=== PATIENT | male | born 1990 | race Caucasian/White ===

== ENCOUNTER 2021-06-06 14:13 | Inpatient (IN) | payer OTHER ==
[2021-06-06 15:18] LABS: Amphetamine Screen,Urine Not Detected (NotDetected); Barbiturate Screen,Urine Not Detected (NotDetected); Benzodiazepines Screen,Urine Not Detected (NotDetected); Cocaine Screen,Urine Not Detected (NotDetected); Methadone Screen, Urine Not Detected (NotDetected); Opiate Screen,Urine Not Detected (NotDetected); Oxycodone Screen, Urine Not Detected (NotDetected); Phencyclidine Screen,Urine Not Detected (NotDetected); Tricyclic Antidepressant,Urine Not Detected (NotDetected); Urn Cannabinoid Scrn Not Detected (NotDetected)
--- NOTE | 2021-06-06 15:21 | ED ---
Psych HPI - General Chief Complaint: Psychiatric Symptoms Stated Complaint: Physciatric Symptoms Time Seen by Provider: 06/06/21 14:25 Source: patient, family, RN notes reviewed Mode of arrival: ambulatory - History of Present Illness Initial Comments: 22-year-old male with a history of depression who comes in today presenting with complaints of feeling depressed and suicidal apparently 2 days ago he wanted to hang himself but was stopped by his sister. Patient does have a history of drinking up to 4 beers per day did state he drank last night no street drugs reported. No definitive triggers. Other complaints or modifying factors MD Complaint: suicidal ideation, feels depressed - Related Data Home Medications Medication Instructions Recorded Confirmed No Known Home Medications 06/06/21 06/06/21 Allergies Allergy/AdvReac Type Severity Reaction Status Date / Time ginseng Allergy Rash/Hives Verified 06/06/21 15:23 sulfamethoxazole Allergy Unknown Verified 06/06/21 15:23 [From Bactrim] Childhood trimethoprim [From Bactrim] Allergy Unknown Verified 06/06/21 15:23 Childhood Review of Systems ROS Statement: Those systems with pertinent positive or pertinent negative responses have been documented in the HPI. ROS Other: All systems not noted in ROS Statement are negative. Past Medical History Past Medical History: No Reported History History of Any Multi-Drug Resistant Organisms: None Reported Past Surgical History: No Surgical Hx Reported Past Psychological History: No Psychological Hx Reported Smoking Status: Current every day smoker Past Alcohol Use History: Abuse, Daily, Heavy Past Drug Use History: None Reported General Exam - General Exam Comments Initial Comments: This is a well-developed well-nourished awake alert oriented 3 male Limitations: no limitations General appearance: alert, in no apparent distress Head exam: Present: atraumatic, normocephalic, normal inspection Eye exam: Present: normal appearance, PERRL, EOMI. Absent: scleral icterus, conjunctival injection, periorbital swelling ENT exam: Present: normal exam, mucous membranes moist Neck exam: Present: normal inspection. Absent: tenderness, meningismus, lymphadenopathy Respiratory exam: Present: normal lung sounds bilaterally. Absent: respiratory distress, wheezes, rales, rhonchi, stridor Cardiovascular Exam: Present: regular rate, normal rhythm, normal heart sounds. Absent: systolic murmur, diastolic murmur, rubs, gallop, clicks GI/Abdominal exam: Present: soft, normal bowel sounds. Absent: distended, tenderness, guarding, rebound, rigid Extremities exam: Present: normal inspection, full ROM, normal capillary refill. Absent: tenderness, pedal edema, joint swelling, calf tenderness Back exam: Present: normal inspection Neurological exam: Present: alert, oriented X3, CN II-XII intact Psychiatric exam: Present: depressed, flat affect, suicidal ideation Skin exam: Present: warm, dry, intact, normal color. Absent: rash Course Vital Signs 06/06/21 14:27 Temperature 98 F Pulse Rate 94 Respiratory 16 Rate Blood Pressure 170/114 O2 Sat by Pulse 99 Oximetry Medical Decision Making - Medical Decision Making Patient was evaluated by psychiatric service and will be admitted for inpatient evaluation and treatment. Patient is a voluntary admission - Lab Data Lab Results 06/06/21 Range/Units 14:47 Urine Opiates Screen Not Detected (NotDetected) Ur Oxycodone Screen Not Detected (NotDetected) Urine Methadone Screen Not Detected (NotDetected) Ur Propoxyphene Screen Not Detected (NotDetected) Ur Barbiturates Screen Not Detected (NotDetected) U Tricyclic Antidepress Not Detected (NotDetected) Ur Phencyclidine Scrn Not Detected (NotDetected) Ur Amphetamines Screen Not Detected (NotDetected) U Methamphetamines Scrn Not Detected (NotDetected) U Benzodiazepines Scrn Not Detected (NotDetected) Urine Cocaine Screen Not Detected (NotDetected) U Marijuana (THC) Screen Not Detected (NotDetected) Disposition Clinical Impression: Depression, Suicidal ideation Disposition: TRANSFER TO PSYCH HOSP/UNIT Condition: Fair Referrals: None,Stated [Primary Care Provider] - 1-2 days
[2021-06-06] MEDS ORDERED: MAGNESIUM HYDROXIDE 2,400 MG/10 ML CUP PO PRN (20:15)
[2021-06-06] MEDS ORDERED: MAG HYDROX/AL HYDROX/SIMETH 30 ML CUP PO PRN (20:15)
[2021-06-06] MEDS ORDERED: ACETAMINOPHEN TAB 325 MG TAB PO PRN (20:15)
[2021-06-06] MEDS ORDERED: LORazepam 1 MG TAB PO PRN (20:15)
[2021-06-06] MEDS ORDERED: LORazepam 2 MG/ML INJ IM PRN (20:19)
[2021-06-06] MEDS ORDERED: haloperidoL 5 MG TAB PO PRN (20:20)
[2021-06-06] MEDS ORDERED: HALOPERIDOL LACTATE 5 MG/ML 1 ML VIAL IM PRN (20:20)
[2021-06-06 22:09] VITALS: RESP 16
[2021-06-06] MEDS: NICOTINE 21MG/24HR PATCH TRANSDERM SCH (22:09)
[2021-06-07] MEDS ORDERED: cloNIDine HCL 0.2 MG TAB PO PRN (01:39)
--- NOTE | 2021-06-07 01:49 | P.MDCNMH ---
History of Present Illness H&P Date: 06/07/21 Chief Complaint: medical eval 30-year-old male with history of hypertension untreated Patient comes in for evaluation due to emotional stress with depression and having suicidal ideation Patient claims that he was told that he has high blood pressure since he was 20 years old but never got treated patient is not aware of any testing for secondary causes of high blood pressure he denies any chest pain trouble breathing headache nausea vomiting or any focal neuro deficits he denies any abdominal pain changes in bowel or urinary habits He denies any episodes of sweating or flushing of his skin, but he does gets episodes of anxiety Review of Systems Pertinent positives as noted in HPI. All other systems were reviewed and are negative Past Medical History Past Medical History: No Reported History History of Any Multi-Drug Resistant Organisms: None Reported Past Surgical History: No Surgical Hx Reported Past Anesthesia/Blood Transfusion Reactions: No Reported Reaction Past Psychological History: No Psychological Hx Reported Smoking Status: Vaper Past Alcohol Use History: Abuse, Daily Past Drug Use History: None Reported - Past Family History Family Family Medical History: No Reported History Medications and Allergies Home Medications Medication Instructions Recorded Confirmed Type No Known Home Medications 06/06/21 06/06/21 History Allergies Allergy/AdvReac Type Severity Reaction Status Date / Time ginseng Allergy Rash/Hives Verified 06/06/21 15:23 sulfamethoxazole Allergy Unknown Verified 06/06/21 15:23 [From Bactrim] Childhood trimethoprim [From Bactrim] Allergy Unknown Verified 06/06/21 15:23 Childhood Physical Exam Vitals: Vital Signs Temp Pulse Pulse Resp BP BP Pulse Ox 06/06/21 21:49 98.7 F 86 16 144/111 06/06/21 20:00 78 18 159/94 100 06/06/21 14:27 98 F 94 16 170/114 99 Intake and Output 06/06/21 06/06/21 06/07/21 14:59 22:59 06:59 Other: Weight 65.771 kg 65 kg Constitutional: No acute distress, conversant, pleasant Eyes: Anicteric sclerae, moist conjunctiva, Pupils equal round reactive to light ENMT: NC/AT Oropharynx clear, no erythema, or exudates Neck: Supple, FROM, no masses, or JVD No carotid bruits No thyromegaly Lungs: Clear to auscultation Clear to percussion Normal respiratory effort, no accessory muscle use Cardiovascular: Heart regular in rate and rhythm, No murmurs, gallops, or rubs No peripheral edema Abdominal: Soft Nontender, no guarding, rebound or rigidity Abdomen moving with respiration Normoactive bowel sounds No hepatomegaly, No splenomegaly No palpable mass No abdominal wall hernia noted Skin: Normal temperature, tone, texture, turgor No induration No subcutaneous nodules No rash, lesions No ulcers Extremities: No digital cyanosis No clubbing Pedal pulses intact and symmetrical Radial pulses intact and symmetrical No calf tenderness Psychiatric: Alert and oriented to person, place and time Neuro Muscles Strength 5/5 in all 4 extremities Sensation to light touch grossly present throughout Cranial nerves II-XII grossly intact No focal sensory deficits Lymphatics: no palpable cervical or supraclavicular , or inguinal lymph nodes Cranial Nerve Examination - Cranial Nerves Cranial Nerve II- Optic: Intact Cranial Nerve III- Oculomotor: Intact Cranial Nerve IV- Trochlear: Intact Cranial Nerve V- Trigeminal: Intact Cranial Nerve - Abducens: Intact Cranial Nerve VII- Facial: Intact Cranial Nerve VIII- Auditory: Intact Cranial Nerve IX- Glossopharyngeal: Intact Cranial Nerve X- Vagus: Intact Cranial Nerve XI- Accessory: Intact Cranial Nerve XII- Hypoglossal: Intact Assessment and Plan Assessment: Depression suicidal ideation management per psych Hypertension suspect secondary causes of hypertension I do recommend the patient considers outpatient workup for secondary causes of hypertension with metabolic profile, ruling out adrenal disease, renal artery stenosis, check an echocardiogram, check thyroid function Patient will need referral to PCP start the patient on amlodipine 5 mg daily, add clonidine when necessary for systolic pressure more than 180 Follow-up labs Thank you for allowing us to participate in the care of this patient. We will follow peripherally. Do not hesitate to contact us with questions. Someone can be reached from the [facility] hospitalist group at all hours of the day at [phone].
[2021-06-07 07:27] VITALS: TEMP 97.6
[2021-06-07] MEDS: NICOTINE 21MG/24HR PATCH TRANSDERM SCH (08:55)
[2021-06-07] MEDS: amLODIPine 5 MG TAB PO SCH (08:55)
[2021-06-07 09:32] LABS: Basophils # (A) 0.1 k/uL (0-0.2); Basophils % (A) 1 %; Eosinophils # (A) 0.4 k/uL (0-0.7); Eosinophils % (A) 4 %; HCT 44.6 % (39.0-53.0); HGB 14.9 gm/dL (13.0-17.5); Lymphocytes # (A) 2.2 k/uL (1.0-4.8); Lymphocytes % (A) 22 %; MCH 31.5 pg (25.0-35.0); MCHC 33.5 g/dL (31.0-37.0); MCV 94.3 fL (80.0-100.0); Mean Platelet Volume 7.8; Monocytes # (A) 0.8 k/uL (0-1.0); Monocytes % (A) 8 %; Neutrophils # (A) 6.4 k/uL (1.3-7.7); Neutrophils % (A) 63 %; Platelet Count 265 k/uL (150-450); RBC 4.73 m/uL (4.30-5.90); RDW 11.9 % (11.5-15.5); WBC 10.2 k/uL (3.8-10.6)
[2021-06-07 09:39] LABS: ALT 17 U/L (4-49); AST 33 U/L (17-59); African American GFR (CKD) >90 (>60 ml/min/1.73 sqM); Albumin 4.7 g/dL (3.5-5.0); Alkaline Phosphatase 69 U/L (38-126); Anion Gap 9 mmol/L; Blood Urea Nitrogen 9 mg/dL (9-20); Calcium 10.3 mg/dL (8.4-10.2); Carbon Dioxide 30 mmol/L (22-30); Chloride 100 mmol/L (98-107); Glucose 101 mg/dL (74-99); Non-African American GFR(CKD) >90 (>60 ml/min/1.73 sqM); Potassium 4.4 mmol/L (3.5-5.1); Sodium 139 mmol/L (137-145); Total Bilirubin 0.8 mg/dL (0.2-1.3); Total Protein 7.5 g/dL (6.3-8.2)
[2021-06-07] MEDS ORDERED: FLUoxetine HCL 20 MG CAP PO STA (10:24)
[2021-06-07] MEDS: NICOTINE GUM (POLACRILEX) 2 MG GUM BUCCAL PRN ×3 (12:08→21:58)
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
[2021-06-07 13:41] VITALS: BMI 20.2
[2021-06-08] MEDS: NICOTINE 21MG/24HR PATCH TRANSDERM SCH (08:28)
[2021-06-08] MEDS: amLODIPine 5 MG TAB PO SCH (08:29)
[2021-06-08 08:32] VITALS: BP 136/87; PULSE 73
[2021-06-08] MEDS ORDERED: FLUoxetine HCL 10 MG CAP PO SCH (09:00)
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
== END 2021-06-08 10:30 | disposition home or self-care (01) | DRG 885 ==
LOC: EC 14:13 → 3MHU 20:10
PROVIDERS: ADMIT Psychiatry & Neurology Psychiatry; ATTEND Psychiatry & Neurology Psychiatry
DX: F33.9 Major depressive disorder, recurrent, unspecified (principal); R45.851 Suicidal ideations; F10.10 Alcohol abuse, uncomplicated; F17.200 Nicotine dependence, unspecified, uncomplicated; F41.9 Anxiety disorder, unspecified; Z79.899 Other long term (current) drug therapy; Z81.1 Family history of alcohol abuse and dependence; Z20.822 Contact with and (suspected) exposure to COVID-19
CPT/HCPCS: 80053; 80306; 82075; 84443; 85025; 87635; 99285

== ENCOUNTER 2023-05-30 12:15 | Emergency (ER) | payer OTHER ==
[2023-05-30] MEDS ORDERED: diphenhydrAMINE 50 MG/ML 1 ML VIAL IVP STA (13:53)
[2023-05-30] MEDS ORDERED: PROCHLORPERAZINE INJ 10 MG/2 ML VIAL IVP STA (13:54)
--- NOTE | 2023-05-30 13:57 | ED ---
General Adult HPI - General Chief complaint: Headache Stated complaint: headache Time Seen by Provider: 05/30/23 13:35 Source: patient, RN notes reviewed, old records reviewed Mode of arrival: ambulatory Limitations: no limitations - History of Present Illness Initial comments: This is a 32-year-old male who presents emergency Department complaining of a headache. Patient states it started 3 days ago. Patient states he's had headaches similar but never lasting 3 days. Patient states she's very concerned about this because normally Motrin and Tylenol taken away but it did not today or yesterday. Patient denies any nausea vomiting. Patient states he is sensitive to light. Patient denies any recent fever chills or cough per patient denies any numbness or weakness. Patient denies any chest pain difficulty breathing patient is any abdominal pain. - Related Data Previous Rx's Medication Instructions Recorded FLUoxetine HCL [PROzac] 30 mg PO DAILY 30 Days cap 06/08/21 Nicotine Gum (Polacrilex) 2 mg BUCCAL Q4HR PRN 14 Days 06/08/21 [Nicorette] amLODIPine [Norvasc] 5 mg PO DAILY 30 Days tab 06/08/21 Allergies Allergy/AdvReac Type Severity Reaction Status Date / Time ginseng Allergy Rash/Hives Verified 05/30/23 12:23 sulfamethoxazole Allergy Unknown Verified 05/30/23 12:23 [From Bactrim] Childhood trimethoprim [From Bactrim] Allergy Unknown Verified 05/30/23 12:23 Childhood Review of Systems ROS Statement: Those systems with pertinent positive or pertinent negative responses have been documented in the HPI. ROS Other: All systems not noted in ROS Statement are negative. Past Medical History Past Medical History: No Reported History History of Any Multi-Drug Resistant Organisms: None Reported Past Surgical History: No Surgical Hx Reported Past Anesthesia/Blood Transfusion Reactions: No Reported Reaction Past Psychological History: No Psychological Hx Reported Smoking Status: Vaper Past Alcohol Use History: Abuse, Daily Past Drug Use History: None Reported - Past Family History Family Family Medical History: No Reported History General Exam - General Exam Comments Initial Comments: GENERAL: Patient is well-developed and well-nourished. Patient is nontoxic and well- hydrated and is in mild distress. ENT: Neck is soft and supple. No significant lymphadenopathy is noted. Oropharynx is clear. Moist mucous membranes. Neck has full range of motion without eliciting any pain. There is no thyroid enlargement and no masses were felt. EYES: The sclera were anicteric and conjunctiva were pink and moist. Extraocular movements were intact and pupils were equal round and reactive to light. Eyelids were unremarkable. PULMONARY: Unlabored respirations. Good breath sounds bilaterally. No audible rales rhonchi or wheezing was noted. CARDIOVASCULAR: There is a regular rate and rhythm without any murmurs gallops or rubs. Femoral pulses are equal bilaterally ABDOMEN: Soft and nontender with normal bowel sounds. No palpable organomegaly was noted. There is no palpable pulsatile mass. SKIN: Skin is clear with no lesions or rashes and otherwise unremarkable. NEUROLOGIC: Patient is alert and oriented x3. Cranial nerves II through XII are grossly intact. Motor and sensory are also intact. Normal speech, volume and content. Symmetrical smile. MUSCULOSKELETAL: Normal extremities with adequate strength and full range of motion. No lower extremity swelling or edema. No calf tenderness. LYMPHATICS: No significant lymphadenopathy is noted PSYCHIATRIC: Normal psychiatric evaluation. Normal interpersonal interactions appears functionally intact in deals appropriately with others. No signs of depression. No signs of anxiety. No delusions. No hallucinations. Limitations: no limitations Course Vital Signs 05/30/23 12:21 Temperature 98.7 F Pulse Rate 107 H Respiratory 20 Rate Blood Pressure 134/98 O2 Sat by Pulse 97 Oximetry Medical Decision Making - Medical Decision Making Was pt. sent in by a medical professional or institution ([facility], [employer], urgent care, hospital, or care home...) When possible be specific @ -No Did you speak to anyone other than the patient for history (EMS, parent, family, police, friend...)? What history was obtained from this source @ -No Did you review nursing and triage notes (agree or disagree)? Why? @ -I reviewed and agree with nursing and triage notes Were old charts reviewed (outside hosp., previous admission, EMS record, old EKG, old radiological studies, urgent care reports/EKG's, care home records)? Report findings @ -No old charts were reviewed Differential Diagnosis (chest pain, altered mental status, abdominal pain women, abdominal pain men, vaginal bleeding, weakness, fever, dyspnea, syncope, head ache, dizziness, GI bleed, back pain, seizure, CVA, palpatations, mental health, musculoskeletal)? @ -Differential Headache: Migraine, tension, cluster, carbon monoxide, central venous thrombosis, pension karma temporal arteritis, acute closure glaucoma, intercranial hemorrhage, mastoiditis, sinusitis, head injury, this is not meant to be an all-inclusive list. EKG interpreted by me (3pts min.). @ -As above X-rays interpreted by me (1pt min.). @ -None done CT interpreted by me (1pt min.). @ -CT of the brain shows no acute abnormality U/S interpreted by me (1pt. min.). @ -None done What testing was considered but not performed or refused? (CT, X-rays, U/S, labs)? Why? @ -None What meds were considered but not given or refused? Why? @ -None Did you discuss the management of the patient with other professionals (professionals i.e. , PA, [employer], lab, RT, psych nurse, social media job titles, test tech, teacher, air defence officer, case managers)? Give summary @ -No Was smoking cessation discussed for >3mins.? @ -No Was critical care preformed (if so, how long)? @ -No Were there social determinants of health that impacted care today? How? (Homelessness, low income, unemployed, alcoholism, drug addiction, transportation, low edu. Level, literacy, decrease access to med. care, [facility], rehab)? @ -No Was there de-escalation of care discussed even if they declined (Discuss DNR or withdrawal of care, Hospice)? DNR status @ -No What co-morbidities impacted this encounter? (DM, HTN, Smoking, COPD, CAD, Cancer, CVA, ARF, Chemo, Hep., AIDS, mental health diagnosis, sleep apnea, morbid obesity)? @ -None Was patient admitted / discharged? Hospital course, mention meds given and route, prescriptions, significant lab abnormalities, going to OR and other pertinent info. @ -Patient received Compazine Benadryl and Toradol and I went back and reevaluated him patient states he felt considerably better. Undiagnosed new problem with uncertain prognosis? @ -No Drug Therapy requiring intensive monitoring for toxicity (Heparin, Nitro, Insulin, Cardizem)? @ -No Were any procedures done? @ -No Diagnosis/symptom? @ -Migraine headache Acute, or Chronic, or Acute on Chronic? @ -Acute Uncomplicated (without systemic symptoms) or Complicated (systemic symptoms)? @ -Complicated Side effects of treatment? @ -No Exacerbation, Progression, or Severe Exacerbation? @ -No Poses a threat to life or bodily function? How? (Chest pain, [place], [place], pneumonia, PE, COPD, DKA, ARF, appy, cholecystitis, CVA, Diverticulitis, Homicidal, Suicidal, threat to staff... and all critical care pts) @ -No Disposition Clinical Impression: Migraine headache Disposition: HOME SELF-CARE Instructions (If sedation given, give patient instructions): Acute Headache (ED) Is patient prescribed a controlled substance at d/c from ED?: No Referrals: None,Stated [Primary Care Provider] - 1-2 days Time of Disposition: 14:57
[2023-05-30] MEDS ORDERED: SODIUM CHLORIDE 0.9% 1,000 ML IV ONE (13:58)
[2023-05-30] MEDS ORDERED: KETOROLAC 15 MG/ML 1 ML VIAL IVP STA (13:58)
--- NOTE | 2023-05-30 14:30 | CT ---
EXAMINATION TYPE: CT brain wo con DATE OF EXAM: 05/30/2023 COMPARISON: None HISTORY: headache CT DLP: 1130.[address] of the brain was performed. The ventricles, basal cisterns and sulci overlying the cerebral convexities demonstrate a normal appe arance. There is no evidence for intracranial hemorrhage or sulcal effacement. No mass effects are seen. Osseous calvarium is intact. If symptoms persist consider MRI as clinically warranted. IMPRESSION: 1. No acute intracranial process is seen at this time.
[2023-05-30 15:30] VITALS: TEMP 98.7
[2023-05-30 15:36] VITALS: BP 124/86; PULSE 83; RESP 16
== END 2023-05-30 15:36 | disposition home or self-care (01) ==
LOC: EC 12:15
DX: G43.909 Migraine, unspecified, not intractable, without status migrainosus (principal); F17.290 Nicotine dependence, other tobacco product, uncomplicated; Z88.2 Allergy status to sulfonamides; Z88.1 Allergy status to other antibiotic agents
CPT/HCPCS: 70450; 99284; 96374; 96375 ×2; 96361; J1200; J0780; J1885

== ENCOUNTER 2024-10-07 07:55 | Emergency (ER) | payer OTHER ==
[2024-10-07 08:28] VITALS: RESP 20
--- NOTE | 2024-10-07 08:38 | XR ---
EXAMINATION TYPE: XR chest 2V DATE OF EXAM: 10/07/2024 8:30 AM COMPARISON: Chest radiographs from 08/26/2014 CLINICAL INDICATION: Male, 34 years old with history of cough; [facility] TECHNIQUE: XR chest 2V Frontal and lateral views of the chest. FINDINGS: Lungs/Pleura: Right middle lobe faint opacities There is no evidence of pleural effusion, focal conso lidation, or pneumothorax. Pulmonary vascularity: Unremarkable. Heart/mediastinum: Cardiomediastinal silhouette is unremarkable. Musculoskeletal: No acute osseous pathology. IMPRESSION: There may be some right middle lobe airspace opacities correlate for pneumonia [facility], , 10/07/2024 8:35 AM
[2024-10-07 09:03] LABS: Influenza A Detected (Not Detectd); Influenza B Not Detected (Not Detectd); RSV Not Detected (Not Detectd)
--- NOTE | 2024-10-07 09:06 | ED ---
URI HPI - General Chief Complaint: Upper Respiratory Infection Stated Complaint: coughing Time Seen by Provider: 10/07/24 07:58 Source: patient, RN notes reviewed Mode of arrival: ambulatory Limitations: no limitations - History of Present Illness Initial Comments: 34-year-old male presents emergency department chief complaint of cough and congestion. Patient states been sick for several weeks. Has had increasing congestion and cough he states he not recorded a fever he states that decreased appetite and nausea. Patient denies any abdominal pain no current headache no dizziness. - Related Data Previous Rx's Medication Instructions Recorded FLUoxetine HCL [PROzac] 30 mg PO DAILY 30 Days cap 06/08/21 Nicotine Gum (Polacrilex) 2 mg BUCCAL Q4HR PRN 14 Days 06/08/21 [Nicorette] amLODIPine [Norvasc] 5 mg PO DAILY 30 Days tab 06/08/21 Azithromycin [Zithromax Z Pack] 0 tab PO DIRECTED #6 tab 10/07/24 Allergies Allergy/AdvReac Type Severity Reaction Status Date / Time ginseng Allergy Rash/Hives Verified 10/07/24 07:57 sulfamethoxazole Allergy Unknown Verified 10/07/24 07:57 [From Bactrim] Childhood trimethoprim [From Bactrim] Allergy Unknown Verified 10/07/24 07:57 Childhood Review of Systems ROS Statement: Those systems with pertinent positive or pertinent negative responses have been documented in the HPI. ROS Other: All systems not noted in ROS Statement are negative. Past Medical History Past Medical History: No Reported History History of Any Multi-Drug Resistant Organisms: None Reported Past Surgical History: No Surgical Hx Reported Past Anesthesia/Blood Transfusion Reactions: No Reported Reaction Past Psychological History: No Psychological Hx Reported Smoking Status: Vaper Past Alcohol Use History: Abuse, Daily Past Drug Use History: None Reported - Past Family History Family Family Medical History: No Reported History General Exam Limitations: no limitations General appearance: alert, in no apparent distress Head exam: Present: atraumatic, normocephalic, normal inspection Eye exam: Present: normal appearance, PERRL, EOMI. Absent: scleral icterus, conjunctival injection, periorbital swelling ENT exam: Present: normal exam, normal oropharynx, mucous membranes moist Neck exam: Present: normal inspection, full ROM. Absent: tenderness, meningismus, lymphadenopathy Respiratory exam: Present: rhonchi. Absent: normal lung sounds bilaterally, respiratory distress, wheezes, rales, stridor Cardiovascular Exam: Present: regular rate, normal rhythm, tachycardia, normal heart sounds. Absent: systolic murmur, diastolic murmur, rubs, gallop, clicks Course Vital Signs 10/07/24 10/07/24 10/07/24 07:57 08:22 08:55 Temperature 97.7 F 98.4 F Pulse Rate 105 H 106 H Respiratory 19 20 20 Rate Blood Pressure 155/104 149/106 O2 Sat by Pulse 99 97 Oximetry Medical Decision Making - Medical Decision Making Was pt. sent in by a medical professional or institution ([facility] Calix, [employer], urgent care, hospital, or fpc...) When possible be specific @ -No Did you speak to anyone other than the patient for history (EMS, parent, family, police, friend...)? What history was obtained from this source @ -No Did you review nursing and triage notes (agree or disagree)? Why? @ -I reviewed and agree with nursing and triage notes Were old charts reviewed (outside hosp., previous admission, EMS record, old EKG, old radiological studies, urgent care reports/EKG's, fpc records)? Report findings @ -No old charts were reviewed Differential Diagnosis (chest pain, altered mental status, abdominal pain women, abdominal pain men, vaginal bleeding, weakness, fever, dyspnea, syncope, headache, dizziness, GI bleed, back pain, seizure, CVA, palpatations, mental health, musculoskeletal)? @ -COVID 19, RSV, influenza, pneumonia, acute bronchitis, URI, this list is not all inclusive EKG interpreted by me (3pts min.). @ -None X-rays interpreted by me (1pt min.). @Chest x-ray shows questionable pneumonia CT interpreted by me (1pt min.). @ -None done U/S interpreted by me (1pt. min.). @ -None done What testing was considered but not performed or refused? (CT, X-rays, U/S, labs)? Why? @ -None What meds were considered but not given or refused? Why? @ -None Did you discuss the management of the patient with other professionals (professionals i.e. SHARA Calix, [employer], lab, RT, psych nurse, high school social studies teacher, spray gun striper, teacher, traffic maintenance officer, keycase assembler)? Give summary @ -No Was smoking cessation discussed for >3mins.? @ -No Was critical care preformed (if so, how long)? @ -No Were there social determinants of health that impacted care today? How? (Homelessness, low income, unemployed, alcoholism, drug addiction, transportation, low edu. Level, literacy, decrease access to med. care, care home, rehab)? @ -No Was there de-escalation of care discussed even if they declined (Discuss DNR or withdrawal of care, Hospice)? DNR status @ -No What co-morbidities impacted this encounter? (DM, HTN, Smoking, COPD, CAD, Cancer, CVA, ARF, Chemo, Hep., AIDS, mental health diagnosis, sleep apnea, morbid obesity)? @ -None Was patient admitted / discharged? Hospital course, mention meds given and route, prescriptions, significant lab abnormalities, going to OR and other pertinent info. @ -[Charge patient is influenza A positive, chest x-ray shows evidence of pneumonia. Patient was treated with azithromycin return parameters esme. Undiagnosed new problem with uncertain prognosis? @ -No Drug Therapy requiring intensive monitoring for toxicity (Heparin, Nitro, Insulin, Cardizem)? @ -No Were any procedures done? @ -No Diagnosis/symptom? @ -Pneumonia, influenza A Acute, or Chronic, or Acute on Chronic? @ -Acute Uncomplicated (without systemic symptoms) or Complicated (systemic symptoms)? @ -Uncomplicated Side effects of treatment? @ -No Exacerbation, Progression, or Severe Exacerbation? @ -No Poses a threat to life or bodily function? How? (Chest pain, [place], [place], pneumonia, PE, COPD, DKA, ARF, appy, cholecystitis, CVA, Diverticulitis, Homicidal, Suicidal, threat to staff... and all critical care pts) @ -No - Lab Data Lab Results 10/07/24 Range/Units 08:20 Influenza Type A (PCR) Detected A (Not Detectd) Influenza Type B (PCR) Not Detected (Not Detectd) RSV (PCR) Not Detected (Not Detectd) SARS-CoV-2 (PCR) Not Detected (Not Detectd) Disposition Clinical Impression: Pneumonia, Influenza A Disposition: HOME SELF-CARE Condition: Stable Instructions (If sedation given, give patient instructions): Influenza (ED), Pneumonia (ED) Additional Instructions: Please return to the Emergency Department if symptoms worsen or any other concerns. Prescriptions: Azithromycin [Zithromax Z Pack] 0 tab PO DIRECTED #6 tab Is patient prescribed a controlled substance at d/c from ED?: No Referrals: None,Stated [Primary Care Provider] - 1-2 days Time of Disposition: 09:06
[2024-10-07 09:27] VITALS: BP 142/101; PULSE 99; TEMP 98.1
== END 2024-10-07 09:27 | disposition home or self-care (01) ==
LOC: EC 07:55
DX: J10.00 Influenza due to other identified influenza virus with unspecified type of pneumonia (principal); F17.290 Nicotine dependence, other tobacco product, uncomplicated; Z88.1 Allergy status to other antibiotic agents; Z88.2 Allergy status to sulfonamides; Z88.8 Allergy status to other drugs, medicaments and biological substances
CPT/HCPCS: 71046; 87636; 99283